=== PATIENT | female | born 1995 | race Caucasian/White ===

== ENCOUNTER 2017-09-15 15:34 | Outpatient (CLI) | payer OTHER ==
[2017-09-15 15:58] VITALS: BP 114/62
== END 2017-09-15 16:51 | disposition home or self-care (01) ==
LOC: LDRP-OP 15:34 → 2WEST 15:38 → LDRP-OP 11-02 07:21
DX: O36.8130 Decreased fetal movements, third trimester, not applicable or unspecified (principal); Z3A.37 37 weeks gestation of pregnancy
CPT/HCPCS: 59025; G0378

== ENCOUNTER 2017-09-18 11:57 | Inpatient (IN) | payer OTHER ==
[~2017-09-18] VITALS: Ht 152.4 cm; Wt 61.8 kg
[2017-09-18] VITALS (16 sets, daily range): BP systolic 98–130; BP diastolic 53–77
[2017-09-18 14:09] LABS: BASOPHIL (%) 0.5 % (0-1); EOSINOPHIL (%) 0.6 % (0-5); HEMOGLOBIN 9.8 G/DL (11.9-15.5); IMMATURE GRANULOCYTE (%) 0.8 % (0.0-0.7); LYMPHOCYTE COUNT 1.3 K/uL (1.0-2.8); MCH 27.1 PG (29.0-34.0); MCHC 31.6 G/DL (30.0-36.0); MCV 85.9 FL (83-99); MONOCYTE (%) 6.9 % (3-12); MONOCYTE COUNT 0.5 K/uL (0-0.8); NEUTROPHIL (%) 71.2 % (45-76); NEUTROPHIL COUNT 4.8 K/uL (1.8-6.4); PLATELET COUNT 222 K/uL (156-360); RBC DIS.WIDTH-CV 14.4 % (11.8-14.6); RBC DIS.WIDTH-SD 44.5 % (39-53); RED BLOOD COUNT 3.61 M/uL (3.80-5.20); WHITE BLOOD COUNT 6.7 K/uL (4.1-10.2)
[2017-09-19] VITALS (17 sets, daily range): BP systolic 104–120; BP diastolic 57–70
[2017-09-20 07:13] VITALS: BP 91/50
[2017-09-20 14:37] VITALS: BP 114/54
[2017-09-21 07:18] VITALS: BP 107/69
== END 2017-09-21 12:05 | disposition home or self-care (01) | DRG 775 ==
LOC: LDRP-OP 11:57 → 2WEST 11:58 → LDRP-OP 11-02 20:04
PROVIDERS: Midwife
PROC: 0U7C7ZZ Dilation of Cervix, Via Natural or Artificial Opening (ICD-10-PCS; principal; 2017-09-18)
PROC: 00HU33Z Insertion of Infusion Device into Spinal Canal, Percutaneous Approach (ICD-10-PCS; principal; 2017-09-18)
PROC: 3E0R3BZ Introduction of Anesthetic Agent into Spinal Canal, Percutaneous Approach (ICD-10-PCS; principal; 2017-09-18)
PROC: 0HQ9XZZ Repair Perineum Skin, External Approach (ICD-10-PCS; 2017-09-19)
PROC: 10E0XZZ Delivery of Products of Conception, External Approach (ICD-10-PCS; 2017-09-19)
DX: O70.0 First degree perineal laceration during delivery (principal); O41.00X0 Oligohydramnios, unspecified trimester, not applicable or unspecified; O99.824 Streptococcus B carrier state complicating childbirth; Z3A.38 38 weeks gestation of pregnancy; Z37.0 Single live birth
CPT/HCPCS: 85025; C1726; C1755; G0378; J1050; J2405; J3010; J3370; J7120